=== PATIENT | female | born 1985 | race Caucasian/White ===

== ENCOUNTER 2025-01-25 17:57 | Emergency (ER) | payer MEDICAID, OTHER ==
[~2025-01-25] VITALS: Ht 152.4 cm; Wt 82.0 kg
[~2025-01-25 17:57] MED LIST: BUPR75TA3; DILANTIN; LEVE750T4 PO; LITHTAB; PHEN-434; PHEN100C4 PO
[2025-01-25 18:13] VITALS: TEMP 37; O2SAT 96
[2025-01-25 18:17] VITALS: O2SAT 98
[2025-01-25 18:34] VITALS: BP 109/78; PULSE 120; RESP 16
[2025-01-25] MEDS: IBUPROFEN 600MG TABLET PO ONE (18:34)
[2025-01-25] MEDS ORDERED: IBUP-2029 MT (19:33)
== END 2025-01-25 20:47 | disposition home or self-care (01) ==
LOC: ER 17:57
DX: S82.891A Other fracture of right lower leg, initial encounter for closed fracture (principal); Z79.899 Other long term (current) drug therapy; Z88.5 Allergy status to narcotic agent; Z88.1 Allergy status to other antibiotic agents; X50.1XXA Overexertion from prolonged static or awkward postures, initial encounter; Y93.89 Activity, other specified; Y92.89 Other specified places as the place of occurrence of the external cause; Y99.8 Other external cause status
CPT/HCPCS: 29515; 73610; 99283